=== PATIENT | male | born 2000 | race Caucasian/White ===

== ENCOUNTER 2022-04-27 21:02 | Emergency (ER) | payer SELFPAY ==
[~2022-04-27] VITALS: Ht 180 cm; Wt 158.8 kg
[2022-04-27 21:27] VITALS: BP 143/66
--- NOTE | 2022-04-27 22:26 | ED EENT ---
History of Present Illness General Chief Complaint: Eye Problems Stated Complaint: RIGHT EAR/EYE PAIN Nursing Triage Note: Pt ambulates to FT2 with HEENT c/o x 1-2 weeks. Pt reports it started with pain in right temporal region with pressure and warmth to right ear. Pt advises that he had abx ear drops at home and used those. Today, the right eye became reddened, was tearing, and had visual difficulties. Pt took "off brand NyQuill" and Tylenol with minimal relief. Source: patient History of Present Illness Date Seen by Provider: Apr 27, 2022 Time Seen by Provider: 22:15 Initial Comments PT ARRIVES VIA POV FROM HOME C/O RIGHT EYE PAIN AND REDNESS X 2 WEEKS EYE IS VERY WATERY, AND IS MATTED ON WAKING NO VISION CHANGES PAIN IS ALSO IN RIGHT ZOROASTRIANISM AREA NO RASH HAS HAD CLEAR RUNNY NOSE--ONLY WHEN EYE IS WATERING. NO INJURY TO THE EYE. NO EAR PAIN, BUT THOUGHT HE MIGHT HAVE AN EAR INFECTION BECAUSE OF PAIN IN RIGHT ZOROASTRIANISM AREA, SO HE TRIED USING UNKNOWN EAR DROPS IN HIS RIGHT EAR. PT ALSO HAD FEVER OF "103" FOR A COUPLE OF DAYS--1 1/2 TO 2 WEEKS AGO. FEVER BEGAN SHORTLY AFTER HE STARTED HAVING EYE PROBLEMS. NO OTHER SYMPTOMS NO SINUS PAIN NO HEADACHE NO DIZZINESS NO NECK PAIN OR STIFFNESS. HE HAS NOT SOUGHT CARE AT ANY TIME FOR THIS PROBLEM EYE PAIN IS WORSE TONIGHT TOOK TYLENOL WITHOUT RELIEF PT WEARS GLASSES, BUT DOES NOT SEE AN EYE DR. --WENT TO [facility]" TO GET HIS GLASSES. DOES NOT WEAR CONTACTS. DENIES ANY OTHER EYE PROBLEMS PCP: [facility] Allergies and Home Medications Allergies Coded Allergies: No Known Drug Allergies (Unverified , 04/27/22) Patient Home Medication List Home Medication List Reviewed: Yes Review of Systems Review of Systems Constitutional: see HPI Eyes: See HPI Ears: No Symptoms Reported; Denies Pain, Denies Tinnitus; Other (NO DRAINAGE) Nose: see HPI Mouth: no symptoms reported Throat: no symptoms reported Respiratory: no symptoms reported Cardiovascular: no symptoms reported Gastrointestinal: no symptoms reported Musculoskeletal: no symptoms reported Skin: no symptoms reported; No rash Neurological: No Symptoms Reported Hematologic/Lymphatic: No Symptoms Reported Immunological/Allergic: no symptoms reported Past Zcsjjgj-Dpuqhu-Fvoigx Hx Patient Social History Tobacco Use?: No Smoking Status: Never a Smoker Smokeless Tobacco Frequency: Never a User Use of E-Cig and/or Vaping dev: No Use of E-Cig and/or Vaping Mikal: Never a User Substance use?: No Alcohol Use?: No Pt feels they are or have been: No Immunizations Up To Date Influenza Vaccine Up-to-Date: No; Not Current First/Initial COVID19 Vaccinat: None Past Medical History Surgeries: No Respiratory: No Cardiac: No Neurological: No Genitourinary: No Gastrointestinal: No Musculoskeletal: No Endocrine: No HEENT: No (GLASSES) Psychosocial: No Integumentary: No Blood Disorders: No Physical Exam Vital Signs Vital Signs - First Documented 04/27/22 21:27 Temp 36.7 Pulse 76 Resp 18 B/P (MAP) 143/66 (91) Pulse Ox 99 O2 Delivery Room Air Height, Weight, BMI Height: '" Weight: lbs. oz. kg; 49.00 BMI Method: General Appearance: WD/WN, no apparent distress, obese, other (DOES NOT APPEAR ILL OR TO BE IN ANY DISCOMFORT OR DISTRESS. ) Eyes: bilateral eye PERRL, bilateral eye EOMI, bilateral eye other (RIGHT CONJUNCTIVA INFLAMED, WITH MILD WATERING OF RIGHT EYE. NO PURULENT DRAINAGE. NO PERIORBITAL EDEMA OR ERYTHEMA. NO STYE NOTED. NO RASH NOTED TO SURROUNDING SKIN. LEFT EYE VERY MILDY INFLAMED. NO DRAINAGE OR WATERING. NO PHOTOPHOBIA. 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 Decision time for Depature: 22:25 Referrals: POLY JORDAN OD NO,LOCAL PHYSICIAN (PCP) Primary Care Physician Patient Instructions: Conjunctivitis ([facility]) ED, How to Use Eye Drops and Eye Ointment ED, Conjunctivitis (Noninfectious Pinkeye) (DC) Add. Discharge Instructions: DO NOT RUB EYE TYLENOL AND MOTRIN NEEDED FOR PAIN USE EYE DROPS DIRECTED FOLLOW UP WITH DR. JORDAN'S OFFICE IN 2-3 DAYS FOR FURTHER CARE--CALL ON FRIDAY TO SCHEDULE APPOINTMENT All discharge instructions reviewed with patient and/or family. Voiced understanding. KITA ALBERTO DO Apr 27, 2022 22:26
[2022-04-27] MEDS ORDERED: RX-BESIFLOXACIN (BESIVANCE) 0.6% OPHTH SUSP 5 ML ONE (22:27)
[2022-04-28] MEDS ORDERED: RX-BESIFLOXACIN (BESIVANCE) 0.6% OPHTH SUSP 5 ML OD SCH (06:00)
== END 2022-04-27 22:30 | disposition home or self-care (01) ==
LOC: ER 21:06
DX: H10.9 Unspecified conjunctivitis (principal); E66.9 Obesity, unspecified; Z68.42 Body mass index [BMI] 45.0-49.9, adult; Z28.310 Unvaccinated for COVID-19
CPT/HCPCS: 99282